=== PATIENT | female | born 1940 | race Caucasian/White ===

== ENCOUNTER 2019-03-11 13:38 | Inpatient (IN) ==
[2019-03-11] MEDS ORDERED: D50W SYRINGE IV ONE (14:06)
[2019-03-11] MEDS ORDERED: NS 1,000 ML ONE ×2 (14:13→15:53)
[2019-03-11] MEDS ORDERED: NS 1,000 ML IV ONE (14:13)
[2019-03-11] MEDS ORDERED: DUONEB (A & A) INH ONE (14:14)
--- NOTE | 2019-03-11 14:23 | EKG Report ---
Test Performed on : 03/11/2019 1:55:47 PM Test Reason : weakness Blood Pressure : / mmHG Vent. Rate : 128 BPM Atrial Rate : 125 BPM P-R Int : 150 ms QRS Dur : 142 ms QT Int : 364 ms P-R-T Axes : 057 129 058 degrees QTc Int : 531 ms Undetermined rhythm Right bundle branch block Left posterior fascicular block Bifascicular block Cannot rule out Inferior infarct , age undetermined Abnormal ECG When compared with ECG of 04-SEP-2009 15:15, Current undetermined rhythm precludes rhythm comparison, needs review (RBBB and left posterior fascicular block) is now present Minimal criteria for Inferior infarct are now present Unconfirmed Result
--- NOTE | 2019-03-11 14:39 | Diag Imaging Result Doc PS360 ---
EXAM: CHEST-2 VIEWS 03/11/2019 HISTORY: sob TECHNIQUE: PA and lateral chest COMMENT: There is alveolar opacity throughout much of the left upper lobe and to a lesser extent the right upper lobe. The entire left heart border is obscured. The there is pleural fluid posteriorly in the left costophrenic sulcus. These findings were not present in 2012. There has been not been a chest radiograph since that time however in comparison with the thoracic spine series of 03/06/2019 the opacity in the left upper lobe is much worse. The right upper lobe as seen on the previous thoracic spine study was clear. IMPRESSION: Bilateral bronchopneumonia. Advise follow-up until clear. Electronically signed by Enoc Ruiz 03/11/2019 2:37 PM
[2019-03-11 14:52] LABS: CREATININE 2.2 mg/dL (0.5-0.9)
[2019-03-11 14:53] LABS: ALB/GLOB RATIO 0.4; ALBUMIN 1.8 g/dL (3.5-5.0); CALCIUM 8.2 mg/dL (8.8-10.2); MAGNESIUM 1.7 mg/dL (1.5-2.7); TOTAL BILIRUBIN 1.37 mg/dL (0.20-1.00); TOTAL PROTEIN 5.8 g/dL (6.3-8.3)
[2019-03-11 14:56] LABS: ALLEN TEST NO; BE -9.6 mmoll (-3.0-3.0); BLOOD TYPE ARTERIAL; HCO3-(ACT) 16.7 mmoll (20.0-26.0); METHB 0.8 % (0.0-1.5); O2(CT) 12.4 mL/dL (15.0-23.0); PCO2(98.6) 32 mmHg (35-45); SAMPLE BLOOD; SAO2 70.7 % (95.0-100.0); THB 12.8 g/dL (11.5-17.4)
[2019-03-11 15:00] LABS: BASO# 0.01 X1000 (0.0-0.2); BASO% 0.3 % (0.0-0.8); EOS% 2.7 % (0.0-10.0); HEMATOCRIT 40.1 % (37.0-47.0); HEMOGLOBIN 14.6 g/dL (12.0-16.0); IMM GRAN# 0.04 X1000 (0.0-0.04); IMM GRAN% 1.1 % (0.0-0.5); LYMPH# 0.25 X1000 (1.2-3.4); LYMPH% 6.8 % (20.5-51.1); MCH 29.6 PG (27-31); MCHC 36.4 g/dL (33-37); MCV 81.2 FL (81-99); MONO# 0.07 X1000 (0.11-0.59); MONO% 1.9 % (1.7-9.3); MPV 11.1 FL (7.4-10.4); NEUT# 3.19 X1000 (1.4-6.5); NEUT% 87.2 % (42.2-75.2); PLT 260 X1000 (130-400); RBC 4.94 XMIL (4.2-5.4); RDW 13.2 % (11.5-14.5); WBC 3.66 X1000 (4.8-10.8)
[2019-03-11 15:00] LABS: PO2(98.6) 42 mmHg (60-100)
[2019-03-11 15:01] LABS: CK INDEX 7.5 (0.0-2.5); CK-MB 17.64 ng/mL (0.0-5.0)
[2019-03-11 15:01] LABS: MODALITY CANNULA; O2HB 68.7 % (95.0-99.0)
[2019-03-11] MEDS ORDERED: VANCOMYCIN 1 GM/NS 1 GM/250 ML IVPB IV ONE (15:03)
[2019-03-11 15:05] LABS: INR 1.37; PROTIME 17.9 Seconds (11.0-16.0)
[2019-03-11 15:06] LABS: PTT 35.7 Seconds (22.3-41.8)
--- NOTE | 2019-03-11 15:17 | PROVIDER DOCUMENTATION ---
This chart was entered by Anne Escalante Scribe, acting as scribe for Marie Crane MD. HPI-General Adult - General Chief Complaint: General Adult Stated Complaint: HYPOGYLCEMIA/WEAKNESS Time Seen by Provider: 03/11/19 13:47 Source: patient, EMS Allergies/Adverse Reactions: Patient Allergies Allergy/AdvReac Type Severity Reaction Status Date / Time cephalexin [From Keflex] Allergy SWELLING Verified 03/06/19 12:06 levofloxacin [From Levaquin] Allergy ITCHING Verified 03/06/19 12:06 metronidazole [From Flagyl] Allergy ITCHING Verified 03/06/19 12:06 simvastatin [From Zocor] Allergy Unknown Verified 03/06/19 12:06 Home Medications: Home Medication List Medication Instructions Recorded Confirmed Last Taken Type Clobetasol Propionate 15 gm VAG DAILY 06/14/17 09/24/17 09/24/17 06:00 History Indapamide 2.5 mg PO DAILY 06/14/17 03/06/19 09/24/17 06:00 History Baclofen [Lioresal] 10 mg PO BID PRN #15 tab 03/06/19 Unknown Rx Tramadol/APAP [Ultracet 1 ea PO Q8HR PRN #15 tab 03/06/19 Unknown Rx 37.5MG/325Mg] - History of Present Illness -Gen Adult Nature of Presenting Problems: 79 y/o female presents to ED with hypoglycemia, weakness, SOB, and fatigue onset this morning. Pt reports she has had sinus congestion for the past 3 weeks. Pt states she has hx arrhythmia, but does not know what it is. Pt is alert and oriented. Location of Pain/Injury: reports: generalized Pain Radiation: reports: no radiation Quality of Pain: reports: none Severity: reports: mild Onset/Duration: reports: this morning, other (3 weeks ago) Timing: reports: still present Context/Activities at Onset: reports: none Modifying Factors: improves with: nothing Associated Symptoms: reports: fatigue, sinus congestion/drainage, shortness of breath, weakness, other (hypoglycemia) Similar Symptoms Previously?: No Recently seen or treated by another doctor?: No - Diabetes Related Context Context: reports: low blood sugar Review of Systems - Adult - REVIEW OF SYSTEMS - ADULT Constitutional: reports: fatique, other (hypoglycemia). denies: chills, fever Eyes: reports: no symptoms reported Ears, Nose, Mouth & Throat: reports: sinus problem. denies: epistaxis Cardiovascular: denies: chest pain, palpitations Respiratory: reports: shortness of breath. denies: cough Gastrointestinal: denies: abdominal pain, diarrhea, nausea, vomiting Genitourinary: reports: no symptoms reported Musculoskeletal: denies: back pain, joint pain Integumentary: reports: no symptoms reported Neurological: reports: other (weakness). denies: dizziness/vertigo, seizure Psychiatric: reports: no symptoms reported Endocrine: reports: other (hypoglycemia). denies: goiter Hematologic/Lymphatic: reports: no symptoms reported Allergic/Immunologic: reports: no symptoms reported All Other Systems: Reviewed and Negative Past History - Adult - PAST MEDICAL HISTORY-ADULT Review of Records: reports: Old Records Reviewed, Nursing Assessment Review, Medications Reviewed Major Childhood Illnesses: reports: denies history Cardiovascular: reports: denies history, arrhythmia, hyperlipidemia Respiratory: reports: denies history, sleep apnea Gastrointestinal: reports: denies history, GERD Obstetrical/Gynecological: reports: denies history Genitourinary: reports: denies history Musculoskeletal: reports: arthritis, intervertebral disc disease Neurological: reports: denies history Endocrine/Immune: reports: denies history, Diabetes, thyroid disorder Other Conditions: reports: denies history, cataract/glaucoma, other (Menere's; Kelechi's) - PRIOR SURGERIES/PROCEDURES Surgical/Procedure History: reports: reviewed, not pertinent, breast (fibrosis), other (cataract removal; cyst removed from spine) - IMMUNIZATION STATUS Childhood Immunizations: See Nurse Assessment Flu Vaccine: See Nurse Assessment - FAMILY HISTORY Family History: reviewed, not pertinent - SOCIAL HISTORY Smoking: less than 1 pack/day Provider spent 3-5 mins advising pt. on dangers of tobacco.: Discussed manners to quit use, and f/u contacts for add'l counseling. Substance Use: none/never Alcohol Use Frequency: never Living Situation: family Physical Exam-General - PHYSICAL EXAM-ADULT Initial Vital Signs Reviewed: Yes - CONSTITUTIONAL General Appearance: alert, no apparent distress - EYES Eyes: PERRL/EOMI, pink conjunctivae - HEAD, EARS, NOSE, MOUTH & THROAT HENMT: normocephalic/atraumatic, moist mucous membranes, normal ENT inspection - NECK Neck: non-tender, full range of motion - RESPIRATORY Respiratory: chest non-tender, decreased breath sounds (at bilateral bases), accessory muscle use, crackles (L), wheezing (R) - CARDIOVASCULAR Cardiovascular: normal peripheral pulses, regular rate, rhythm - GASTROINTESTINAL (ABDOMEN) Abdominal Exam: normal bowel sounds, non tender, soft - MUSCULOSKELETAL Back Exam: normal inspection, no CVA tenderness Extremity: normal range of motion, non-tender - SKIN Integumentary: warm/dry, pallor - NEUROLOGIC Neurologic: grossly normal - PSYCHIATRIC Psych/Mental Status: normal mood/affect, normal thought content, normal thought process, oriented x 3 Progress - PLAN OF CARE/RESULTS Progress/Plan/Lab Results: Vital Signs - 8 hr 03/11/19 14:01 03/11/19 14:10 03/11/19 14:20 Pulse Rate 124 H 127 H Respiratory Rate 31 H 29 H 27 H 03/11/19 14:32 03/11/19 14:40 Pulse Rate 126 H 126 H Respiratory Rate 31 H Laboratory Results - last 24 hr 03/11/19 03/11/19 14:05 14:05 Creatine Kinase 234 H Troponin T 0.263 H Orders Category Date Time Status Cardiac Monitoring DIRECTED Care 03/11/19 14:31 Active IV Insertion ORDERED Care 03/11/19 14:31 Active Notify MD of + Sepsis Screen NOW Care 03/11/19 14:31 Active Notify Physician As Ordered Care 03/11/19 14:31 Active cxr [CHEST-2 VIEWS] [RAD] Stat Exams 03/11/19 14:13 Completed ABG [RESP] Routine Lab 03/11/19 14:14 Ordered BLOOD CULTURE [BLDCUL] Stat Lab 03/11/19 14:17 Received BNP [PRO B-NATRIURETIC PEPTIDE] Stat Lab 03/11/19 14:05 Received CBC WITH DIFF [HEME] Stat Lab 03/11/19 14:38 Ordered CBC WITH ELECTRONIC DIFF [HEME] Stat Lab 03/11/19 14:05 Results CK PROFILE [SP CHEM] Stat Lab 03/11/19 14:05 Results CMP [COMPREHENSIVE METABOLIC PANEL] [CHEM] Stat Lab 03/11/19 14:05 Received LACTATE, PLASMA [CHEM] Lab 03/11/19 17:45 Uncollected LACTATE, PLASMA [CHEM] Lab 03/11/19 20:45 Uncollected LACTATE, PLASMA [CHEM] Q3H Lab 03/11/19 14:05 Received MAGNESIUM [CHEM] Stat Lab 03/11/19 14:05 Received PROTIME WITH INR [COAG] Stat Lab 03/11/19 14:38 Received PTT [COAG] Stat Lab 03/11/19 14:38 Received TROPONIN T Stat Lab 03/11/19 14:05 Completed URINALYSIS W/POSS RFLX CULT [URINALYSIS] Stat Lab 03/11/19 14:31 Uncollected 0.9% Sodium Chloride Inj [Ns] 1,000 ml Med 03/11/19 14:13 Discontinued .ROUTE As directed 0.9% Sodium Chloride Inj [Ns] 1,000 ml Med 03/11/19 14:13 Active IV 999 mls/hr Albuterol 2.5MG/Ipratrop 0.5MG [Duoneb (A & A)] Med 03/11/19 14:14 Disc ontinued 3 ml INH NOW ONE Dextrose 50% Syringe [D50w Syringe] Med 03/11/19 14:06 Discontinued 50 ml IV NOW ONE Aerosol Treatments Routine Oth 03/11/19 14:14 Active Aerosol Treatments Stat Oth 03/11/19 14:14 Active Oxygen Device Stat Oth 03/11/19 14:31 Active EKG [EKG] Stat Ther 03/11/19 13:52 Draft Result Diagrams: 03/11/19 14:05 03/11/19 14:05 - EKG 1 Time of EKG reading by physician:: 13:55 EKG Read and Signed by:: Rolando Dillon EKG Interpretation (*Must complete 3 of following elements*): Abnormal Rate: 128 Rhythm: Undetermined [place]: normal QRS: RBB, other (L posterior fascicular block; bifascicular block; cannot rule out inferior infarct) MT Interval: normal ST Wave: normal - CONSULTS/PCP/HOSPITALIST Notification #1 *Consult/PCP/Hospitalist*: Kaci WEBBER Time Discussed: 15:08 (hypoxia, hypoglycemia, hyponatremia, LFT elevated, elevated trop, abn abg.) Consult Disposition: Admit Departure - Departure Date of Disposition Decision: 03/11/19 Time of Disposition Decision: 15:09 DIAGNOSIS: Hypoglycemia, Hyponatremia, Elevated LFTs, Elevated troponin, Bronchopneumonia Disposition: ADMITTED INPATIENT 09 Certified Medical Emergency: Emergent Condition: Stable Referrals and Follow-Ups: Jimmy Robertson MD [Primary Care Provider] - Call for Appoint. 1-2days Discharge Education: Steps to Quit Smoking, [id number] - Critical Care Note This patient required my direct & personal management of CC.: No Attestation - Physician/ SHAYNA Attestation Patient care was provided by Advanced Practice Provider:: No The physician spent face to face time with patient:: Yes Advanced Practice Provider documentation review:: Supervising physician onsite and consulted in the evaluation and care of this patient. The physician did have a face to face encounter with the patient. This chart was documented by the indicated scribe, (Anne Ecsalante, Shanta) and accurately reflects the services I performed and decisions made by me, Marie Crane MD, as attested by the provider's signature.
[2019-03-11] MEDS ORDERED: VANCOMYCIN 1 GM/NS 1 GM/250 ML IVPB ONE (15:29)
[2019-03-11] MEDS ORDERED: NS 2,000 ML IV ONE (15:40)
[2019-03-11] MEDS ORDERED: NORCURON ONE (15:41)
[2019-03-11] MEDS ORDERED: VERSED ONE (15:41)
[2019-03-11] MEDS ORDERED: AMIDATE ONE (15:41)
[2019-03-11] MEDS ORDERED: QUELICIN ONE (15:42)
[2019-03-11] MEDS ORDERED: MISC. PHARMACY COMMUNICATION SCH (15:45)
[2019-03-11] MEDS ORDERED: LEVOPHED 8 MG in D5 1/2 NS 250 ML IV SCH (15:45)
[2019-03-11] MEDS: ZYVOX 600 MG/D5W 600 MG/300 ML IVPB IV SCH (15:45)
--- NOTE | 2019-03-11 16:14 | Diag Imaging Result Doc PS360 ---
EXAM: CHEST-PORTABLE 03/11/2019 HISTORY: ;intubation TECHNIQUE: AP portable at 1603 COMMENT: There is an endotracheal tube with its tip at thoracic inlet and an NG tube with its tip in the stomach. The alveolar and interstitial opacities which were previously described at 1428 are again noted. IMPRESSION: Bilateral pneumonia plus minus pulmonary edema. Electronically signed by Enoc Ruiz 03/11/2019 4:12 PM
[2019-03-11] MEDS ORDERED: DIPRIVAN 1% 1,000 MG/100 ML BOTTLE ONE (16:28)
[2019-03-11] MEDS ORDERED: SODIUM CHLORIDE 0.9% INJ SCH (16:30)
[2019-03-11] MEDS ORDERED: PROTONIX IV SCH (16:30)
[2019-03-11] MEDS ORDERED: AZACTAM 2 GM in NS 100 ML IV ONE (16:30)
[2019-03-11] MEDS ORDERED: NS 1,000 ML IV SCH ×4 (16:30→22:15)
[2019-03-11] MEDS ORDERED: DIPRIVAN 1% 1,000 MG/100 ML BOTTLE IV SCH (16:45)
[2019-03-11 17:10] LABS: BLOOD TYPE ARTERIAL; SAMPLE BLOOD
[2019-03-11 17:11] LABS: ALLEN TEST NO; BE -14.5 mmoll (-3.0-3.0); HCO3-(ACT) 13.3 mmoll (20.0-26.0); METHB 0.7 % (0.0-1.5); O2(CT) 15.9 mL/dL (15.0-23.0); PCO2(98.6) 50 mmHg (35-45); PO2(98.6) 64 mmHg (60-100); SAO2 88.3 % (95.0-100.0); SRATE 20 BPM; THB 13.2 g/dL (11.5-17.4); TVOL 450 mL
[2019-03-11 17:13] LABS: pH(98.6) 7.09 (7.35-7.45)
[2019-03-11 17:14] LABS: MODALITY VENTILATOR; O2HB 85.4 % (95.0-99.0)
[2019-03-11 17:18] LABS: BASO# 0.07 X1000 (0.0-0.2); BASO% 1.6 % (0.0-0.8); EOS# 0.17 X1000 (0.0-0.7); EOS% 3.8 % (0.0-10.0); HEMATOCRIT 39.3 % (37.0-47.0); HEMOGLOBIN 14.1 g/dL (12.0-16.0); IMM GRAN# 0.03 X1000 (0.0-0.04); IMM GRAN% 0.7 % (0.0-0.5); LYMPH# 0.49 X1000 (1.2-3.4); LYMPH% 10.9 % (20.5-51.1); MCH 29.7 PG (27-31); MCHC 35.9 g/dL (33-37); MCV 82.9 FL (81-99); MONO# 0.07 X1000 (0.11-0.59); MONO% 1.6 % (1.7-9.3); MPV 10.9 FL (7.4-10.4); NEUT# 3.66 X1000 (1.4-6.5); NEUT% 81.4 % (42.2-75.2); PLT 256 X1000 (130-400); RBC 4.74 XMIL (4.2-5.4); RDW 13.6 % (11.5-14.5); WBC 4.49 X1000 (4.8-10.8)
[2019-03-11 17:39] LABS: ALB/GLOB RATIO 0.4; ALBUMIN 1.3 g/dL (3.5-5.0); CALCIUM 7.4 mg/dL (8.8-10.2); MAGNESIUM 1.6 mg/dL (1.5-2.7); TOTAL BILIRUBIN 1.25 mg/dL (0.20-1.00)
[2019-03-11 17:42] LABS: POTASSIUM 2.5 mmol/L (3.5-5.1)
[2019-03-11] MEDS ORDERED: SODIUM BICARBONATE 8.4% 100 MEQ in D5W 1,000 ML IV SCH (17:45)
[2019-03-11] MEDS ORDERED: POTASSIUM CHLORIDE 40 MEQ/SWI 40 MEQ/100 ML IVPB IV ONE (17:48)
[2019-03-11 17:53] LABS: EOS 4 % (1-10); LYMPHS 10 % (21-51); MONO 2 % (1-9); NRBC 1 % (0-0); SEGS 80 % (42-75)
[2019-03-11] MEDS ORDERED: ZITHROMAX 500 MG/NS 500 MG/250 ML IVPB IV SCH (18:00)
[2019-03-11 18:17] LABS: URINE SOURCE CATH
[2019-03-11 18:21] LABS: BILIRUBIN URINE NEGATIVE (NEGATIVE); BLOOD URINE SMALL (NEGATIVE); COLOR YELLOW; GLUCOSE URINE NEGATIVE (NEGATIVE); KETONE URINE NEGATIVE (NEGATIVE); LEUKOCYTES URINE NEGATIVE (NEGATIVE); NITRITE URINE NEGATIVE (NEGATIVE); PH URINE 5.5; PROTEIN URINE 30 mg/dL (NEGATIVE); SP GRAVITY URINE 1.006; TURBIDITY URINE HAZY (CLEAR); UROBILINOGEN URINE 2 mg/dL (NORMAL)
[2019-03-11] MEDS: SODIUM BICARBONATE 8.4% 100 MEQ in D5W 1,000 ML IV SCH (18:26)
[2019-03-11 18:41] LABS: UR EPITHELIAL CELLS <10 /HPF (<10); URINE BACTERIA NEGATIVE /HPF; URINE RBC <10 /HPF (<10); URINE WBC <10 /HPF (<10)
[2019-03-11 18:52] LABS: URINE CASTS GRANULAR PRESENT; URINE CRYSTALS NONE SEEN; URINE SMALL ROUND CELLS NONE SEEN; URINE YEAST NONE SEEN
[2019-03-11 19:33] LABS: ALLEN TEST YES; BE -11.8 mmoll (-3.0-3.0); BLOOD TYPE ARTERIAL; HCO3-(ACT) 15.5 mmoll (20.0-26.0); O2(CT) 14.4 mL/dL (15.0-23.0); PCO2(98.6) 37 mmHg (35-45); PO2(98.6) 61 mmHg (60-100); SAMPLE BLOOD; SRATE 22 BPM; THB 11.8 g/dL (11.5-17.4); TVOL 600 mL; pH(98.6) 7.22 (7.35-7.45)
[2019-03-11 19:35] LABS: MODALITY VENTILATOR
[2019-03-11 19:38] LABS: O2HB 86.8 % (95.0-99.0)
[2019-03-11] MEDS ORDERED: SODIUM BICARBONATE 8.4% IV PUSH SCH (20:00)
[2019-03-11] MEDS: ALBUMIN 25% IV SCH ×2 (20:10→23:11)
--- NOTE | 2019-03-11 20:20 | HISTORY AND PHYSICAL ---
PRIMARY CARE PHYSICIAN: Dr. Jimmy Robertson. CHIEF COMPLAINT: Low back pain, low blood sugar. HISTORY OF PRESENT ILLNESS: This is an 79-year-old female with a prior history of CAD, gastroesophageal reflux disease, obstructive sleep apnea, intermittent back pain and hypothyroid who continues to smoke. She was evaluated in the emergency room on 03-06-2019 for back pain, she received [place] and Thoracic films and a CBC were obtained. She experienced hypotension, was given IV NS and discharged home with prescriptions for pain and a muscle relaxer. Reportedly, she experienced increasing confusion and weakness. She was noted to have increasing shortness of breath. Her called Dr Jimmy Robertson, her PCP, who recommended her come to the Emergency room for evaluation. EMS reports an initial blood sugar of 47 for which she was given oral glucose en route. The patient presented to the ER hypotensive, leukopenic, hypoxic and hypoglycemic with Chest x-ray revealing bilateral pneumonia. At the time of my exam, The patient is hypotensive, has lactic acidosis, acute hypoxemic and hypercapnic respiratory failure with acute kidney injury and acute liver injury. She has received 1 liter saline bolus with supplemental oxygen. PAST MEDICAL HISTORY: CAD, gastroesophageal reflux disease, hyperlipidemia, sleep apnea, hypothyroid, Resendez's esophagus. Chronic back pain. PAST SURGICAL HISTORY: Spine removed from the CS, breast fibroids and cataract removal. SOCIAL HISTORY: She smokes a half a pack a day. Denies alcohol or illicit drug use. She is . Lives with her . REVIEW OF SYSTEMS: Unable to obtain. PHYSICAL EXAMINATION: GENERAL: This is an 79-year-old female who is lying on the stretcher in trendelenburg in moderate distress. HEENT: Head is normocephalic, atraumatic. Mucous membranes are dry. NECK: Supple, with trachea midline. She has no JVD. CARDIOVASCULAR: Regular rate and rhythm. She is tachycardic. S1 and S2 appreciated. She has no murmur appreciated. No lower extremity edema. PULMONARY: Breath sounds are diminished with rhonchi noted throughout. Chest rises and falls symmetric with increased work of breathing noted. GASTROINTESTINAL: Soft, nondistended. Bowel sounds in all 4 quadrants. NEUROLOGIC: She is lethargic SKIN: Warm and dry. LABS: WBC is 3.6, with hemoglobin 14.6, hematocrit 40.1 and platelets of 260,000. INR is 1.37. Chemistry: Sodium is 119, potassium 3, BUN 49, creatinine 2.2, with a glucose of 61, total bilirubin is 1.3 with AST 132, ALT 52, and alkaline phosphatase 118. Troponin is 0.263. ProBNP is 18,277 with a lactate of 7.2. Chest x-ray revealed bilateral bronchopneumonia. ASSESSMENT AND PLAN: 1. Septic shock - She has received 1 liter NS bolus. Will give 2000ml bolus and reassess Pressors as appropriate [place] sepsis protocol, Obtain Blood cultures, Urine culture and sputum culture 2. Acute hypoxemic and hypercarbic respiratory failure requiring intubation. Will ask ER MD or anesthesia to intubate. Consult Dr Bernstein 3. Bilateral bronchopneumonia. Antibiotic coverage of Zyvox and Azactam dosed per pharmacy 4. Hyponatremia. 5. Hypokalemia. 6. Acute kidney injury overlying Chronic kidney disease. Hydrate, Renal dose medications 7. Acute liver injury 8. Elevated troponin 9. Gastroesophageal reflux disease. PPI for gastric acid suppression 10. Hypothyroid. Check TSH Pt will be admited to ICU on telemetry. Consult Dr. Bernstein for ventilator and critical care management. NG tube will be placed for gastric decompression. Trend electrolytes. Replete as appropriate Strict I & O DVT prophylaxis at present will use SCD. Further treatments pending hospital course. Dictated by LAWANDA Obregon for Bhanu Maradiaga MD cc: LAWANDA Obregon MD [facility]
[2019-03-11] MEDS: POTASSIUM CHLORIDE 20 MEQ/SWI 20 MEQ/100 ML IVPB IV SCH ×2 (20:35→22:15)
--- NOTE | 2019-03-11 20:40 | PULMONOLOGY CONSULTATION ---
DATE: 03/11/2019 REASON FOR CONSULTATION: Respiratory failure, shock, and pneumonia. HISTORY OF PRESENT ILLNESS: Ms Spaulding is an 79-year-old white female with a 60-pack year history for tobacco (continues to smoke), history of intermittent back pain, who presented to the emergency room 03/06/2019 with back pain. The patient has a history of chronic back pain. She had spine films performed along with white blood count. She did have hypotension following a [place] administration and was given IV fluids. The patient's reports she became more confused after being at home. A friend came to visit, who is a nurse, and noted she had increased work of breathing. He called Dr. Robertson, who recommended that she come to the emergency room. The patient now has leukopenia. Chest x-ray reveals bilateral pneumonia. The patient had lactic acidosis with progressive respiratory distress, requiring intubation and mechanical ventilation. She is now on vasopressors for hypotensive shock. She has received several fluid boluses. PAST MEDICAL HISTORY/PROBLEM LIST: 1. Chronic back pain. 2. History of gastroesophageal reflux disease. 3. Allergies, which are exacerbated in the Spring. 4. History of spinal cyst removal. SOCIAL HISTORY: She lives with her . Ongoing tobacco use as per above. PHYSICAL EXAMINATION: General: Reveals an acutely ill white female on mechanical ventilation. Vital Signs: Blood pressure 63/45, heart rate 127, respiratory rate 25, oxygen saturation not trending. HEENT: Pupils are equal. Oropharynx appears clear. Neck: Supple. Chest: Reveals coarse rhonchi throughout all lung dooley. Cardiac: Increased rate, regular rhythm. Abdomen: Soft with no bowel sounds present. Extremities: Cool to the touch. LABORATORIES: At 1405, sodium 119, potassium 3.0, chloride 77, carbon dioxide 17, BUN 49, creatinine 2.2, bilirubin 1.37, AST 132, ALT 52. proBNP 18,000. Total protein 5.8, albumin 1.8. Arterial blood gas following intubation reveals a pH of 7.09, pCO2 50, pO2 64, lactate 5.2. IMPRESSION: An 79-year-old with long history of tobacco use who has severe bilateral pneumonia, acute hypoxemic respiratory failure, acute hypercapnic respiratory failure, septic shock, acute renal failure, and acute liver injury. Her prognosis is guarded with all the issues outlined above with her age. RECOMMENDATIONS: 1. Continue full ventilatory support. Ventilator adjustments have been made by this practitioner. 2. Additional volume resuscitation. 3. Albumin to increase oncotic pressure. 4. Continue broad spectrum antibiotics. Will add azithromycin for additional atypical coverage although this would be unlikely. 5. Check cortisol level to make sure she is not adrenally insufficient. 6. Check immunoglobulin to see if immunoglobulin replacement might be of benefit. 7. Continue vasopressors. 8. Continue gastric acid suppression. 9. Ongoing discussions with the family about the severity of her illness and the probability that she may not survive this hospital stay. cc: Anderson Bernstein MD
[2019-03-11 22:03] LABS: BASO# 0.06 X1000 (0.0-0.2); BASO% 1.4 % (0.0-0.8); EOS# 0.47 X1000 (0.0-0.7); EOS% 11.2 % (0.0-10.0); HEMATOCRIT 35.9 % (37.0-47.0); HEMOGLOBIN 12.7 g/dL (12.0-16.0); IMM GRAN# 0.05 X1000 (0.0-0.04); IMM GRAN% 1.2 % (0.0-0.5); LYMPH# 0.46 X1000 (1.2-3.4); MCH 29.9 PG (27-31); MCHC 35.4 g/dL (33-37); MCV 84.5 FL (81-99); MONO# 0.13 X1000 (0.11-0.59); MONO% 3.1 % (1.7-9.3); MPV 11.3 FL (7.4-10.4); NEUT# 3.03 X1000 (1.4-6.5); NEUT% 72.1 % (42.2-75.2); PLT 181 X1000 (130-400); RBC 4.25 XMIL (4.2-5.4)
[2019-03-11 22:08] LABS: ALB/GLOB RATIO 0.7; POTASSIUM 2.6 mmol/L (3.5-5.1); TOTAL BILIRUBIN 1.49 mg/dL (0.20-1.00); TOTAL PROTEIN 4.7 g/dL (6.3-8.3)
[2019-03-11] MEDS ORDERED: NS 2,000 ML ONE (22:09)
[2019-03-11] MEDS: NEO-SYNEPHRINE 50 MG in NS 250 ML IV SCH (23:40)
[2019-03-11] MEDS ORDERED: PITRESSIN 40 UNIT in NS 100 ML IV SCH (23:45)
[2019-03-12] MEDS: SODIUM BICARBONATE 8.4% IV SCH ×2 (00:10→04:41)
[2019-03-12] MEDS: LEVOPHED 8 MG in D5 1/2 NS 250 ML IV SCH ×3 (00:10→06:47)
[2019-03-12] MEDS: AZACTAM 1 GM in NS 50 ML IV SCH ×2 (00:38→08:05)
[2019-03-12] MEDS: SOLU-CORTEF IV SCH ×3 (00:49→04:58)
[2019-03-12] MEDS ORDERED: LASIX IV ONE (02:43)
[2019-03-12] MEDS ORDERED: LASIX 120 MG in NS 25 ML IV ONE (03:00)
[2019-03-12 03:03] LABS: ALLEN TEST YES; BLOOD TYPE ARTERIAL; HCO3-(ACT) 8.8 mmoll (20.0-26.0); METHB 0.7 % (0.0-1.5); O2(CT) 14.4 mL/dL (15.0-23.0); PCO2(98.6) 44 mmHg (35-45); PO2(98.6) 54 mmHg (60-100); SAMPLE BLOOD; SAO2 79.7 % (95.0-100.0); SRATE 22 BPM; THB 13.1 g/dL (11.5-17.4); TVOL 600 mL
[2019-03-12 03:06] LABS: O2HB 78.3 % (95.0-99.0)
[2019-03-12 03:07] LABS: MODALITY VENTILATOR
[2019-03-12] MEDS: ZYVOX 600 MG/D5W 600 MG/300 ML IVPB IV SCH (03:08)
[2019-03-12] MEDS: ALBUMIN 25% IV SCH (03:08)
[2019-03-12] MEDS ORDERED: SODIUM BICARBONATE 8.4% IV PUSH ONE (03:35)
[2019-03-12] MEDS ORDERED: SODIUM BICARBONATE 8.4% ONE (03:45)
[2019-03-12 03:50] LABS: MAGNESIUM 1.8 mg/dL (1.5-2.7); PHOSPHORUS 7.6 mg/dL (2.7-4.5)
[2019-03-12 04:05] LABS: CREATININE 1.8 mg/dL (0.5-0.9); POTASSIUM 4.3 mmol/L (3.5-5.1)
[2019-03-12 04:06] LABS: CALCIUM 6.5 mg/dL (8.8-10.2)
[2019-03-12] MEDS ORDERED: NORCURON IV ONE (04:09)
[2019-03-12] MEDS ORDERED: CALCIUM GLUCONATE IV PUSH ONE (04:24)
[2019-03-12 04:30] LABS: CK INDEX 7.7 (0.0-2.5); CK-MB 25.7 ng/mL (0.0-5.0)
[2019-03-12] MEDS: SODIUM BICARBONATE 8.4% 100 MEQ in D5W 1,000 ML IV SCH ×2 (04:34→09:05)
[2019-03-12] MEDS: NEO-SYNEPHRINE 50 MG in NS 250 ML IV SCH ×3 (04:39→09:59)
[2019-03-12] MEDS ORDERED: STERILE WATER INJ. ONE (04:42)
[2019-03-12 07:04] LABS: BASO# 0.01 X1000 (0.0-0.2); BASO% 0.4 % (0.0-0.8); EOS% 4.3 % (0.0-10.0); HEMATOCRIT 35.6 % (37.0-47.0); HEMOGLOBIN 12.2 g/dL (12.0-16.0); IMM GRAN# 0.04 X1000 (0.0-0.04); IMM GRAN% 1.7 % (0.0-0.5); LYMPH% 21.6 % (20.5-51.1); MCH 29.2 PG (27-31); MCHC 34.3 g/dL (33-37); MCV 85.2 FL (81-99); MONO# 0.12 X1000 (0.11-0.59); MONO% 5.2 % (1.7-9.3); MPV 12.1 FL (7.4-10.4); NEUT# 1.54 X1000 (1.4-6.5); NEUT% 66.8 % (42.2-75.2); PLT 224 X1000 (130-400); RBC 4.18 XMIL (4.2-5.4); RDW 14.1 % (11.5-14.5); WBC 2.31 X1000 (4.8-10.8)
[2019-03-12] MEDS ORDERED: CALCIUM GLUCONATE 4.65 MEQ in NS 50 ML IV ONE (07:23)
[2019-03-12] MEDS ORDERED: MUCOMYST 20% INH SCH (07:30)
[2019-03-12 07:31] LABS: LYMPHS 10 % (21-51); MONO 6 % (1-9); SEGS 68 % (42-75)
--- NOTE | 2019-03-12 07:54 | Diag Imaging Result Doc PS360 ---
EXAM: CHEST-PORTABLE INDICATION: increased PIPs/low uo. ARDS vs Pulm edema TECHNIQUE: One view COMPARISON: 03/11/2019 FINDINGS: Support tubes and lines are in stable positions. Bilateral infiltrates throughout the left lung and on the right mainly in the upper lobe appears to have increased in density, especially in the upper lung zones bilaterally. No other new consolidations are identified. Cardiac silhouette is stable. IMPRESSION: Interval worsening of infiltrates bilaterally. Electronically signed by Isma Bingham 03/12/2019 7:51 AM
--- NOTE | 2019-03-12 08:37 | PROGRESS NOTE ---
DATE: 03/12/2019 SUBJECTIVE: This patient is sedated and intubated. Her is at the bedside. Admitted due to severe pneumonia, bilaterally, septic shock and multiorgan failure. Her prognosis is extremely poor. I discussed the case with the , who is at the bedside, and he seems to understand. I do not think she will survive this hospital stay. She has been placed on 3 pressors and ABGs look worse compared with yesterday. Now she is DNR. OBJECTIVE: Vital Signs: Pulse 135, respiratory rate 28, blood pressure at 0431 hours was 111/83 and now we have been unable to get it. Her oxygen saturation was 69 at 0430 hours on mechanical ventilation, 100% oxygen flow. HEENT: Head normocephalic, no trauma. Neck: Supple. Chest: Coarse breath sounds bilaterally. Cardiovascular: Tachycardic. Regular rhythm and rate. Abdomen: Soft, nontender, nondistended. No hepatosplenomegaly. Extremities: They seem to be cool to the touch, and she has been presenting some change of color in the skin. She is pale with possible signs of cyanosis. LABORATORY: WBC 2.3, hemoglobin 12.2, hematocrit 35.6, platelets 224. A pH 7, pCO2 44, PO2 54, bicarbonate 8.8. Lactate level is 11.7. Sodium 123, potassium 4.3, chloride 87, bicarbonate 11. BUN 45, creatinine 1.8, glucose 198, calcium 6.5, magnesium 1.8. CK 332, troponin 0.48, CK-MB 25.7. ASSESSMENT AND PLAN: 1. Septic shock. Continue with vasopressors, broad-spectrum antibiotics, mechanical ventilation, intravenous fluids. 2. Acute hypoxemic and hypercarbic respiratory failure, likely secondary to severe pneumonia. Continue with mechanical ventilation, antibiotics, oxygen supplementation. 3. Multifocal pneumonia, especially on the left side. Continue with antibiotics and intravenous fluids. 4. Acute on chronic kidney disease, likely secondary to septic shock. We will continue with intravenous fluids. 5. Shock liver, aware. We will continue with the same management. Basically this patient is having multiorgan failure. 6. History of tobacco use, aware. 7. Elevated troponins likely secondary to severe septic shock. 8. Hypothyroidism, aware. 9. Electrolyte imbalance. Continue with intravenous fluids. Potassium is normal today. CRITICAL CARE TIME: 45 minutes. Case has been discussed with the at the bedside. This patient is now DNR. I explained to him that she may not survive this hospital stay. cc: Bhanu Maradiaga MD
[2019-03-12] MEDS ORDERED: EPINEPHRINE SYRINGE ONE (09:00)
[2019-03-12] MEDS ORDERED: ATROPINE SYRINGE ONE (09:00)
[2019-03-12 10:30] VITALS: BP 115/51
--- NOTE | 2019-03-12 22:58 | PULMONOLOGY PROGRESS NOTE ---
DATE: 03/12/2019 SUBJECTIVE: The patient is unresponsive. She is on 3 vasopressors. OBJECTIVE: Vital signs: Blood pressure 110/75, heart rate 93, respiratory rate 25, oxygen saturation not trending. HEENT: Pupils are midpoint and nonreactive. Oropharynx appears clear. Trunk is mottled. Cardiac exam: Distant heart sounds. S1, S2. Chest: Reveals diffuse bilateral crackles. Abdomen: Soft, without bowel sounds. Extremities: Reveal generalized edema. LABORATORIES: White blood count 2.3, hemoglobin 12.2, platelet count 224,000. Sodium 123, potassium 4.3, chloride 87, bicarbonate 11, BUN 45, creatinine 1.8. Arterial blood gas reveals a pH of 7.00, pCO2 of 42, pO2 of 54 with a lactate of 11.7. IMAGING STUDIES: Chest x-ray reveals worsening diffuse bilateral pulmonary infiltrates. IMPRESSION: An 79-year-old with: 1. Severe bilateral pneumonia. 2. Acute hypoxemic and acute hypercapnic respiratory failure. 3. Septic shock. 4. Acute renal failure. 5. Acute liver failure. DISCUSSION: An 79-year-old with problems outlined above. The patient has clinical COPD. She has multiorgan failure. She is developing progressive lactic acidosis despite volume resuscitation and vasopressors. The patient is unlikely to survive this hospital course. The is aware that she will likely . He has discussed this with Dr. Hanson earlier today, and if she cannot maintain a heart rate or a blood pressure, then she will be allowed to have a natural . PLAN: 1. Continue full ventilatory support. 2. Continue antibiotic regimen. 3. Continue vasopressors. 4. Continue gastric acid suppression. 5. Ongoing end-of-life discussions and end-of-life support for the patient's family. She is unlikely to survive. cc: Anderson Bernstein MD
--- NOTE | 2019-03-13 14:02 | DISCHARGE SUMMARY ---
ADMISSION DATE: 03/11/2019 DISCHARGE DATE: 03/12/2019 DISCHARGE DIAGNOSES: 1. Septic shock. 2. Multifocal pneumonia. 3. Acute hypoxemic and hypercarbic respiratory failure secondary to pneumonia. 4. Likely acute on chronic kidney disease. 5. Shock liver. 6. Tobacco abuse. 7. Elevated troponins. 8. Hypothyroidism. 9. Electrolyte imbalance. 10. Multiorgan failure. DATE AND TIME OF EXAM: This patient's demise was on 03/12/2019 at 11:07 a.m. HOSPITAL COURSE: An 79-year-old female with a past medical history of coronary artery disease, GERD, hyperlipidemia, sleep apnea, hypothyroidism, chronic back pain, who continues to smoke, presented to the emergency department due to increasing work of breathing and confusion. Basically, the story was obtained by the . At the moment of my evaluation she was already intubated. She presented to the emergency department on 03/06/2019 for back pain. She was treated. She was hypotensive, but she received IV fluids. She was discharged home with pain medication and I believe muscle relaxer. As per the , the last time she took a pain medication was last Saturday. It looks like she has been with increasing confusion and weakness, and also she was noted to be short of breath. Everything started after discharge and being at home, and was getting worse on a daily basis. A friend came to visit who is a nurse, and he noted that she was dyspneic. Dr. Jimmy Robertson, her PCP, was contacted and he recommended to bring the patient to the emergency department for evaluation. In the emergency department, she was found to have a low white blood cell count with neutrophilia. She was hyponatremia and hypokalemic with hypochloremia as well, low bicarbonate and high anion gap, acute on probably chronic kidney disease, elevated LFTs, elevated troponin and CK, CK-MB. ProBNP was elevated at 18,227. Blood gas upon admission showed a pH of 7.3 with a pCO2 of 32 and PO2 of 42, and she was already on 2.5 L of nasal cannula. Because all this resolved and her respiratory distress, she required intubation and mechanical ventilation. X-ray showed bilateral pneumonia. She was hypotensive and tachycardic, hypoxic. She received multiple boluses of fluid and she was placed on fluids as well for maintenance. Since her bicarbonate was dropping even more, we put this patient on bicarbonate drip as well. The patient was transferred to the ICU. The patient was evaluated by Pulmonary Department, but this patient was getting worse. Initially she was placed on 1 vasopressor, Levophed, but then she ended up with 3 pressors. She has been on broad-spectrum antibiotics, ventilatory support. The night team at some point talked to the , who changed the code status from full code to DNR, and even though she was on mechanical ventilation 100% oxygen supply, the oxygen saturation was low, mostly in the 70s and 80s, but then it started to drop even more. This patient basically had multiorgan failure secondary to septic shock with kidney dysfunction, liver dysfunction, hypotension, mental status changes and respiratory failure. This patient's demise was at 11:07 a.m. on 03/12/2019. Her has been notified. cc: Bhanu Maradiaga MD
== END 2019-03-12 11:07 | disposition expired | DRG 871 ==
LOC: SUPCPDRO → ED 13:38 → EDIPHOLD 15:57 → ICU 22:47
PROVIDERS: ATTEND Internal Medicine
CPT/HCPCS: 51702; 71010; 71020; 71045; 71046; 80048; 80053; 81001; 82533; 82550; 82553; 82784; 82805; 82948; 83605; 83735; 83880; 84100; 84443; 84484; 85025; 85379; 85610; 85730; 87040; 87070; 87088; 87205; 92950; 93005; 94002; 94003; 94640; 94660; 94761; 96365; 96366; 96368; 96375; 99285; 99291; A9270; C9113; J0171; J0330; J0456; J0461; J0610; J1720; J1940; J2020; J2250; J2370; J3370; J3480; J7030; J7050; J7070; P9047; S0073; S0164; XXXXX